=== PATIENT | female | born 1945 | race Caucasian/White ===

== ENCOUNTER → 2018-01-13 | Outpatient (CLI) | payer MEDICARE, BC | LOC: GMALS 16:49 | PROVIDERS: ATTEND Nurse Practitioner Acute Care | DX: E34.9 Endocrine disorder, unspecified (principal) ==

== ENCOUNTER → 2018-01-22 | Outpatient (CLI) | payer MEDICARE, BC | LOC: GMAM 12:34 | PROVIDERS: ATTEND Family Medicine | DX: M06.9 Rheumatoid arthritis, unspecified (principal) ==

== ENCOUNTER → 2018-06-23 | Outpatient (CLI) | payer MEDICARE, BC | LOC: GMAM 14:30 | PROVIDERS: ATTEND Family Medicine | DX: I10 Essential (primary) hypertension (principal) ==

== ENCOUNTER → 2018-09-03 | Outpatient (CLI) | payer MEDICARE, BC ==
--- NOTE | 2018-09-03 14:22 | MRI ---
EXAM DESCRIPTION: Brain w/o Contrast: MRI. CLINICAL HISTORY: Tremors and shaking of bilateral hands. COMPARISON: MRI scan of the cervical spine on this visit. CT scan of the head without contrast 09/22/2011. TECHNIQUE: Multiplanar, high-field MRI unit, multiple diffusion sequences, multiple conventional sequences without contrast. FINDINGS: Multifocal hyperintense FLAIR and T2-weighted signal in the periventricular white matter of the lewis radiata and centrum semiovale, more right than left in the frontal parietal and occipital lobes. Also focal lesions in the bilateral howard-white matter junctions of the cerebral hemispheres. . No hemorrhage, no cerebral edema, no mass-effect. Similar appearing small focal lesion in the anterior left basal ganglia. Minimally hyperintense signal in the central bertha of the brainstem. Normal signal in the bilateral cerebellar hemispheres. No hemorrhage, no cerebral edema, no mass-effect. Concordance of the diffusion and non-diffusion sequences with no diffusion restriction. Cortical sulci, ventricles, and other CSF spaces, and the subdural spaces are normally configured for patients age. No effacement or displacement. No midline shift. No extra-axial hemorrhage. Normal flow signal void in the major vessels of the native [place], and the venous sinuses. IACs are symmetric bilaterally. Normal signal in the bilateral mastoid air cells. No mass effect in the bilateral cerebellopontine angles. Pituitary gland occupies most of the sella. Base of the cerebellar tonsils is at the level of the foramen magnum. Minimal mucoperiosteal thickening in the paranasal sinuses.. The bony calvarium is intact. IMPRESSION: 1. White matter lesions in the lewis radiata and centrum semiovale bilaterally frontal parietal and occipital lobes right more than left. Also small focal lesions in the subcortical white matter bilaterally. Consistent with cerebral microvascular disease and age-related white matter changes. Unlikely to represent vasculitis, inflammation, or demyelinating process. Also minimal disease in the central bertha. 2. No intra-axial extra-axial hemorrhage. No extra-axial fluid collection. Electronically signed by: Aung Hills MD 09/03/2018 2:19 PM CDT
--- NOTE | 2018-09-03 14:52 | MRI ---
EXAM DESCRIPTION: Cervical Spine: MRI. CLINICAL HISTORY: 72 years Female OCCLUSION AND STENOSIS OF BASILAR ARTERY COMPARISON: MRI scan cervical spine 12/25/2010. TECHNIQUE: Multiplanar, high-field MRI, multiple sequences, non-contrast Cervical spine. FINDINGS: C2-C3: Minimal disc desiccation with tiny posterior midline disc bulge but no significant canal narrowing. Bilateral facet arthrosis more on the right than the left with narrowing of the right neural foramen. Canal and left neuroforamen are patent. Anterior cervical disc fusion at the C3-C4 level with almost complete bony fusion of the disc space. No canal stenosis. Right neuroforamen is patent. Hypertrophy of the left facet joint and left uncinate spur with mild to moderate narrowing of the left neural foramen. Normal signal in the cord with no abnormal fluid collection or edema in the prevertebral soft tissues or in the spinal canal. Essentially complete bony fusion of C4-5. Minimal arthrosis of the facet joints. Mild canal narrowing. Bilateral foramina are patent. No abnormal marrow signal in the fusion level. C5-C6: Essentially complete bony fusion. No significant canal or foraminal narrowing. Minimal arthrosis in the bilateral facet joints. C6-C7 ACDF with significant metallic susceptibility artifact. Partial fusion of the disc space though it is not well seen. Bulge posteriorly is almost abutting the central cord. No significant bilateral foraminal narrowing. No abnormal fluid collections in the soft tissues or canal and no marrow edema. C7-T1: Mild to moderate disc space loss and desiccation. Anterior Modic type II endplate reactive changes. Posterior disc osteophyte bulge abutting the cord with mild to moderate canal narrowing. Mild to moderate bilateral neural foraminal narrowing T1-T2: Disc space loss and disc desiccation more to the right of midline. Posterior disc osteophyte bulge almost abutting the cord with mild narrowing. Right side disc osteophyte complex encroaching in the soft tissues and narrowing the right neural foramen. Bilateral facet arthrosis. Spinal alignment minimally kyphotic.. No cord compression or cord edema. Atlantoaxial joint minimal arthrosis. Base of the cerebellar tonsils is slightly above the foramen magnum. Paravertebral soft tissues showing muscle atrophy.. Vertebral bodies are not compressed at any level. Otherwise normal marrow signal in the remaining vertebral bodies and the posterior elements. IMPRESSION: 1. Anterior cervical disc fusions at C3-C4 and C6-C7. No bony or soft tissue complications. Posterior fusion material bulging at C6-7 narrowing the canal with no stenosis or cord compression. 2. Essentially complete bony fusion at C3-4 and C5-6 with no significant canal or foraminal narrowing. No bony complications. Stable since the prior study. 3. Minimal disc desiccation and tiny posterior bulge C2-C3. This has progressed since the prior study. 4. Anterior moderate spondylosis at C7-T1 with moderate canal narrowing and moderate bilateral neural foraminal narrowing. This has progressed since the prior study. 5. Anterior and right side moderate spondylosis at T1-T2 with narrowing of the right neural foramen. This has progressed since the prior study. Electronically signed by: Aung Hills MD 09/03/2018 2:49 PM CDT
== END ==
LOC: MRI 11:00
PROVIDERS: ATTEND Psychiatry & Neurology Neurology
DX: I65.1 Occlusion and stenosis of basilar artery (principal); M50.022 Cervical disc disorder at C5-C6 level with myelopathy; M47.894 Other spondylosis, thoracic region; Z98.1 Arthrodesis status

== ENCOUNTER → 2018-10-15 | Outpatient (CLI) | payer MEDICARE, BC ==
--- NOTE | 2018-10-18 10:47 | RAD ---
EXAM DESCRIPTION: MYELOGRAM, LUMBAR SPINE CLINICAL HISTORY: SPONDYLOLISTHESIS. Low back pain. Multiple levels of cervical spine fusion. COMPARISON: CT scan of the lumbar spine post myelogram on this visit. TECHNIQUE: Informed written consent and verbal consent was obtained from the patient. Patient was positioned prone on the fluoroscopy table. Audit Clerks Supervisor film was recorded. Routine sterile prep and drape was performed. 1% lidocaine mixed with bicarbonate was used for local/skin anesthetic. Using fluoroscopy for guidance, a 25 gauge spinal needle was advanced into the soft tissues, but could not be advanced into the subarachnoid space. Under fluoroscopy, a 22-gauge spinal needle was advanced into the L2-3 subarachnoid space of the lumbar spine. This was confirmed by clear CSF appearing in the needle hub. Opening pressure was not measured Approximately 13 cc of Isovue 300 was introduced through the needle into the subarachnoid space under fluoroscopy. No immediate complication was evident. The patient tolerated the procedure well. Fluoroscopy time: Less than 2 min.. 4 images were taken by fluoroscopic visualization, but no images were recorded, due to technical problems. Dose: 136.64 mGy FINDINGS: Audit Clerks Supervisor view shows bilateral facet arthrosis L4-5 and L5-S1. Mild thoracolumbar levoscoliosis. Mild arthrosis in the right SI joint. Anterior and posterior extradural defects at L4-5 were seen fluoroscopically. IMPRESSION: Successful, fluoroscopic-guided lumbar myelogram prior to postmyelogram lumbar CT scan. Images were not recorded due to technical difficulties. No immediate complications. Patient was given home instructions and taken home in good condition by a personal computer network engineer. Electronically signed by: Aung Hills MD 10/18/2018 10:45 AM CDT
--- NOTE | 2018-10-18 11:52 | CT ---
EXAM DESCRIPTION: Lumbar Spine: Computed Tomography. CLINICAL HISTORY: 73 years Female POST MYELOGRAM. L4-L5 anterolisthesis. Significant low back pain. Previous lumbar MRI scan not available for comparison. COMPARISON: Fluoroscopic-guided lumbar myelogram on this visit, prior to this examination. TECHNIQUE: Spiral, axial 2.5 x 2.5 mm scans through the lumbar spine after fluoroscopic guided subarachnoid administration of 13 mL of Isovue contrast. 2.0 mm sagittal and coronal Reconstructions. No adverse reactions. Total Exam DLP: 512.47 mGy-cm. This exam was performed according to our departmental dose-optimization program which includes automated exposure control, adjustment of the mA and/or kV according to patient size and/or use of iterative reconstruction technique; to reduce radiation dose to as low as reasonably achievable (ALARA). FINDINGS: The numbering of the vertebra on this examination is based upon the assumption that the most inferior rib pair visualized originates from the T12 vertebra. T10-T11: Disc space decreased. Schmorl's node inferior T10 endplate. Trace retrolisthesis and posterior disc osteophyte bulge abutting the cord with mild canal narrowing. Bilateral foramina are patent with contrast in the bilateral nerve root sleeves. Facet joints negative. T11-T12: Disc space narrowed with anterior disc bulging and endplate ridging. Inferior T11 endplate Schmorl's node. Posterior broad-based disc bulge and minimal spurring impressing on the thecal sac and abutting the cord more on the right than the left. Contrast in the right T11 root sleeve. Bilateral mild foraminal narrowing more left than right. Facet joints negative. T12-L1: Marked disc space loss. Anterior and right side endplate reactive changes with anterior disc bulge and endplate spurs. Vacuum phenomenon with air density in the disc space. Posterior 1 mm grade 1 retrolisthesis with endplate spurs. Posterior broad-based disc bulge more to the right of midline abutting the exiting right T12 nerve with bilateral foraminal narrowing more right than left. Mild canal narrowing. Bilateral contrast in the T12 root sleeves. Conus terminates at L1. Right facet joint effusion and hypertrophy L1-L2: Disc space maintained with tiny posterior bulge. Minimal contrast in the right L1 sleeve. Canal and foramina are patent. Minimal facet arthrosis and hypertrophy. L2-L3: Disc space maintained. No significant disc bulge. Contrast seen in the bilateral L2 root sleeves. Minimal bilateral facet arthrosis and hypertrophy more on the right. Minimal narrowing of the right subarticular recess. Canal and foramina are patent. L3-L4: Disc space maintained with tiny posterior disc bulge. Canal and foramina are patent. Bilateral facet arthrosis and flavum ligament hypertrophy more on the right than the left. Contrast in the bilateral L3 root sleeves. L4-L5: Beginning at the level of the mid L4 vertebral body, there is extradural mass effect on the right sac caused by a soft tissue mass in the right lateral extradural space. This is medial to the exiting right L4 root sleeve which contains contrast. Significant arthrosis and hypertrophy in the adjacent right L4-5 facet joint. Less arthrosis and hypertrophy in the left facet joint and flavum ligament, but AP canal diameter 7 mm at the level of the superior L5 endplate. Bilateral subarticular recess narrowing. Bilateral moderate foraminal narrowing more left than right. Grade 1 anterolisthesis 3.5 mm. The disc does not bulge posterior to the L5 endplate. L5-S1: Severe disc space loss with vacuum phenomenon and air density in the disc space. Anterior endplate ridging. Posterior endplate sclerosis and spurs with bulging disc 5 mm abutting the thecal sac. Mild bilateral facet arthrosis and hypertrophy with the flavum ligaments. AP canal diameter 10 mm. Contrast seen in the bilateral exiting L5 root sleeves. Also in the bilateral S1 descending roots sleeves in the lateral recesses. Moderate bilateral foraminal narrowing. Bilateral arthrosis in the SI joints. No compression type vertebral body fractures at any level. IMPRESSION: 1. Grade 1 L4-L5 anterolisthesis with desiccated disc and minimal disc space loss but this does not bulge beyond the L5 superior endplate. Advanced bilateral facet hypertrophic arthrosis with flavum ligaments impressing on the lateral and posterior thecal sac. Soft tissue which may be associated with the right facet impressing on the right lateral thecal sac with superior extent at the mid L4 vertebral body level. No calcification, this could represent cartilage fragment, disc fragment, or synovial cyst/fragment. Correlate with previous MR findings. Moderate central canal stenosis. Bilateral moderate foraminal narrowing. 2. Marked L5-S1 disc space loss and spondylosis with posterior bulging disc and spurs 5 mm in borderline mild central canal stenosis. Moderate bilateral foraminal narrowing. 3. Anterior right side spondylosis at T12-L1 with significant disc space loss. Grade 1 retrolisthesis. Mild canal narrowing and bilateral moderate foraminal narrowing more right than left. Right facet hypertrophic arthrosis. 4. Posterior broad-based T11-T12 disc bulge and posterior endplate spurring abutting the cord more on the right than the left. Mild to moderate right paracentral canal narrowing. Facet joints and ligaments unremarkable. Electronically signed by: Aung Hills MD 10/18/2018 11:50 AM CDT
== END ==
LOC: RAD 10:30
PROVIDERS: ATTEND Student in an Organized Health Care Education/Training Program
DX: M43.16 Spondylolisthesis, lumbar region (principal); M41.85 Other forms of scoliosis, thoracolumbar region; M51.16 Intervertebral disc disorders with radiculopathy, lumbar region; M51.14 Intervertebral disc disorders with radiculopathy, thoracic region; M47.895 Other spondylosis, thoracolumbar region; M47.897 Other spondylosis, lumbosacral region; M48.07 Spinal stenosis, lumbosacral region

== ENCOUNTER → 2018-12-22 | Outpatient (CLI) | payer MEDICARE, BC | LOC: GMAM 16:44 | PROVIDERS: ATTEND Family Medicine | DX: I48.2 Chronic atrial fibrillation (principal) ==

== ENCOUNTER → 2019-04-21 | Outpatient (CLI) | payer MEDICARE, BC | LOC: GMAM 14:54 | PROVIDERS: ATTEND Family Medicine | DX: M25.50 Pain in unspecified joint (principal) ==

== ENCOUNTER → 2019-08-01 | Outpatient (CLI) | payer MEDICARE, BC ==
--- NOTE | 2019-08-03 16:22 | MAM ---
EXAM DESCRIPTION: 3D Screening BILATERAL : Digital Mammography. CLINICAL HISTORY: 73 years Female SCREEN . No complaints or personal history of breast cancer. Mother with breast cancer at unknown age. Remote family history of breast cancer. Menarche age 16. Childbirth age 26. In the bertha age 38. Currently on HRT. Bilateral breast reduction 2017.. Lifetime risk of developing breast cancer (Tyrer-Cuzick model)(%): 8.1. COMPARISON: Bilateral screening digital breast tomosynthesis July 2018 @outside imaging facility. 2-D digital screening bilateral mammography August 2013. . TECHNIQUE: Bilateral CC and MLO projection full-field images, digital tomosynthesis mammographic technique. Bilateral digital 2-D full-field MLO images. CAD available for 2-D images. FINDINGS: The breast parenchymal density pattern is: Scattered areas of fibroglandular density. No skin thickening or nipple retraction. Solitary microcalcifications. Bilateral skin mole markers. Stable bilateral architectural distortion related to breast reduction surgery. No new focal, stellate mass or density, focal asymmetry , and no suspicious microcalcifications bilaterally. Stable mammograms compared to prior study. Taking into account, differences in mammographic technique. IMPRESSION: Benign exam. BIRAD CATEGORY: 2 BENIGN FINDINGS. RECOMMENDATIONS: FOLLOW UP: Routine digital bilateral mammographic screening, one year interval from July 2019. Written communication explaining the IMPRESSION and follow-up, will be mailed to the patient and referring health care provider. According to the [employer], yearly mammograms are recommended starting at age 40 and continuing as long as a woman is in good health. Any breast change noted on a breast self-exam should be reported promptly to the patient's healthcare provider. Breast MRI is recommended for women with an approximately 20-25% or greater lifetime risk of breast cancer, including women with a strong family history of breast or ovarian cancer and women who have been treated for Hodgkin's disease. A negative mammographic report should not delay tissue diagnosis in patients with significant clinical history or physical findings. Extremely dense breast tissue limits the sensitivity of digital mammography. Electronically signed by: Aung Hills MD 08/03/2019 4:21 PM ACID BLOWER
== END ==
LOC: MAMMO 14:00
PROVIDERS: ATTEND Family Medicine
DX: Z12.31 Encounter for screening mammogram for malignant neoplasm of breast (principal)